=== PATIENT | male | born 1985 | race Caucasian/White ===

== ENCOUNTER 2019-05-19 13:49 | Emergency (ER) | payer OTHER ==
[~2019-05-19] VITALS: Ht 177.8 cm; Wt 109.1 kg
[2019-05-19 13:54] VITALS: Ht 177.8 cm; Wt 109.1 kg
[2019-05-19] MEDS ORDERED: TOPAMAX50 MG PO (13:56)
[2019-05-19 14:23] LABS: BASOPHILS 0.1 % (0-2); EOSINOPHILS 0.6 % (0-7); HEMATOCRIT 51.2 % (42.0-54.0); HEMOGLOBIN 18.5 g/dL (13.5-17.5); IMMATURE GRANULOCYTES 0.3 % (0-5); MCH 33.4 pg (26.0-34.0); MCHC 36.1 g/dL (31.0-37.0); MCV 92.4 fL (80.0-100.0); MEAN PLATELET VOLUME 10.1 fL (7.4-10.4); MONOCYTES 5.5 % (2-11); NEUTROPHILS 86.5 % (40-80); PLATELET COUNT 172 10x3/uL (130-400); RBC 5.54 10x6/uL (4.20-6.10); RDW 13.2 % (11.5-14.5); WBC 13.8 10x3/uL (4.8-10.8)
[2019-05-19 14:35] LABS: ALBUMIN 4.5 g/dL (3.4-5.0); ANION GAP 15.9 mmol/L (8-16); BILIRUBIN - TOTAL 0.89 mg/dL (0.2-1.3); CALCIUM 9.7 mg/dL (8.5-10.1); CARBON DIOXIDE 26.1 mmol/L (21.0-32.0); CREATININE - SERUM 1.2 mg/dL (0.6-1.3); MAGNESIUM - SERUM 2.3 mg/dL (1.8-2.4); PROTEIN - SERUM 8.1 g/dL (6.4-8.2)
[2019-05-19 14:51] LABS: UDS - AMPHET NEGATIVE QUAL (NEGATIVE); UDS - BARB NEGATIVE QUAL (NEGATIVE); UDS - BENZO NEGATIVE QUAL (NEGATIVE); UDS - COCAINE NEGATIVE QUAL (NEGATIVE); UDS - OPIATE NEGATIVE QUAL (NEGATIVE); UDS - PCP NEGATIVE QUAL (NEGATIVE); UDS - THC POSITIVE QUAL (NEGATIVE)
[2019-05-19 14:54] LABS: APPEARANCE CLEAR (CLEAR); BACTERIA FEW /hpf (NONE SEEN); BILIRUBIN NEGATIVE (NEGATIVE); COLOR YELLOW (YELLOW); GLUCOSE NEGATIVE (NEGATIVE); KETONE MODERATE mg/dL (NEGATIVE); NITRITE NEGATIVE (NEGATIVE); PROTEIN TRACE mg/dL (NEGATIVE); RED CELLS - URINE OCC /hpf (0-5); SPECIFIC GRAVITY 1.025 (1.005-1.020); UROBILINOGEN NORMAL (NORMAL); WHITE CELLS - URINE OCC /hpf (0-5)
[2019-05-19] MEDS ORDERED: ZOFRAN ODT4 MG/UDTAB PO (16:19)
[2019-05-19 16:39] VITALS: BP 115/72
== END 2019-05-19 16:39 | disposition home or self-care (01) ==
LOC: D.ER 13:49
PROVIDERS: Family Medicine
DX: G40.909 Epilepsy, unspecified, not intractable, without status epilepticus (principal)

== ENCOUNTER 2020-05-03 18:24 | Emergency (ER) | payer OTHER ==
[~2020-05-03] VITALS: Ht 177.8 cm; Wt 109.1 kg
[~2020-05-03 18:24] MED LIST: TOPAMAX50 MG PO; ZOFRAN ODT4 MG/UDTAB PO
[2020-05-03 18:36] VITALS: Ht 177.8 cm; Wt 109.1 kg
[2020-05-03 19:51] LABS: BASOPHILS 0.2 % (0-2); EOSINOPHILS 0.4 % (0-7); HEMOGLOBIN 17.3 g/dL (13.5-17.5); IMMATURE GRANULOCYTES 0.3 % (0-5); LYMPHOCYTES 15.6 % (15-50); MCH 34.7 pg (26.0-34.0); MCHC 34.6 g/dL (31.0-37.0); MCV 100.2 fL (80.0-100.0); MEAN PLATELET VOLUME 9.9 fL (7.4-10.4); MONOCYTES 6.5 % (2-11); PLATELET COUNT 179 10x3/uL (130-400); RBC 4.99 10x6/uL (4.20-6.10); WBC 9.1 10x3/uL (4.8-10.8)
[2020-05-03 19:58] LABS: CALC OSMOLALITY 273 mosm/kg (275-300); CALCIUM 9.1 mg/dL (8.5-10.1); CHLORIDE - SERUM 101 mmol/L (98-107); GLUCOSE 103 mg/dL (74-106); POTASSIUM - SERUM 3.5 mmol/L (3.5-5.1); SODIUM 138 mmol/L (136-145); UREA NITROGEN 7 mg/dL (7-18); eGFR NON AFRICAN AMERICAN > 90 mL/min (90-120)
[2020-05-03 20:09] LABS: ALBUMIN 4.1 g/dL (3.4-5.0); ALKALINE PHOSPHATASE 138 U/L (30-120); ALT (SGPT) 157 U/L (10-68); AMYLASE - SERUM 38 U/L (25-115); BILIRUBIN - TOTAL 1.18 mg/dL (0.2-1.3); LIPASE 80 U/L (73-393); PROTEIN - SERUM 7.4 g/dL (6.4-8.2)
[2020-05-03 20:15] LABS: TROPONIN-I < 0.017 ng/mL (0.000-0.060)
[2020-05-03] MEDS ORDERED: LIBRIUM25 MG PO (20:42)
[2020-05-03 20:49] VITALS: BP 140/91
== END 2020-05-03 20:49 | disposition home or self-care (01) ==
LOC: D.ER 18:24
PROVIDERS: Family Medicine
DX: R74.0 Nonspecific elevation of levels of transaminase and lactic acid dehydrogenase [LDH] (principal); F10.239 Alcohol dependence with withdrawal, unspecified; R11.2 Nausea with vomiting, unspecified